=== PATIENT | male | born 1990 | race Caucasian/White ===

== ENCOUNTER 2022-10-18 18:22 | Emergency (ER) | payer MEDICARE, MEDICAID, SELFPAY ==
--- NOTE | ~2022-10-18 | XR_ITS ---
EXAMINATION: XR CHEST CLINICAL INFORMATION: 32-year-old with shortness of breath COMPARISON: 09/24/1999 TECHNIQUE: Frontal view of the chest was obtained. FINDINGS: There are ill-defined patchy airspace disease in the left upper lobe suggestive for pneumonia. The right lung is clear. Cardiomediastinal silhouette is normal. No evidence of pleural effusion. Osseous structures unremarkable. XR/XR chest 1V IMPRESSION: Patchy airspace disease in the left upper lobe, correlate clinically with pneumonia
[2022-10-18 18:31] VITALS: BP 142/68; BP 150/99; PULSE 111; PULSE 116; RESP 25; O2SAT 100; O2SAT 96; BMI 62.4
--- NOTE | 2022-10-18 18:33 | ECG_ITS ---
Test Reason : OVERDOSE Blood Pressure : / mmHG Vent. Rate : 107 BPM Atrial Rate : 107 BPM P-R Int : 156 ms QRS Dur : 112 ms QT Int : 370 ms P-R-T Axes : 050 014 009 degrees QTc Int : 493 ms Sinus tachycardia Possible Left atrial enlargement Left ventricular hypertrophy ( R in aVL , [place] product ) Inferior infarct , age undetermined Abnormal ECG When compared with ECG of 23-SEP-2017 13:29, Vent. rate has increased BY 62 BPM Inferior infarct is now Present Nonspecific T wave abnormality now evident in Inferior leads QT has lengthened Referred By: Yeimi Giron Electronically Signed By:CHERIE THRASHER
[2022-10-18 18:35] VITALS: PULSE 107; RESP 19; O2SAT 100
--- NOTE | 2022-10-18 19:08 | ED.OVERDOSE ---
HPI - Overdose General Chief Complaint: Overdose Stated Complaint: OD Time Seen by Provider: 10/18/22 18:32 History of Present Illness HPI Narrative: Is patient is a 32-year-old male found on the ground not breathing. Patient is of a larger size. He is over 200 kg in weight. Has a BMI of 62.5. Patient was placed on BiPAP by EMS. Given 16 mg of Narcan which woke him up. Came into the ED for further evaluation. Patient is now awake alert admits to using heroin. He stated he has not used heroin in a few years just tried it again today. Denies any chest pain any abdominal pain any nausea any vomiting. Related Data Previous Rx's Medication Instructions Recorded doxycycline hyclate 100 mg capsule 100 mg PO BID cough 7 days #14 caps 10/18/22 Allergies Allergy/AdvReac Type Severity Reaction Status Date / Time No Known Allergies Allergy Unverified 11/07/19 17:05 [No Known Allergies*] Review of Systems Review of Systems: Positive narcotic use Yes all other systems are reviewed and are negative [facility] Past Medical History Attestation statement: The following information was validated with the patient. Social History Social History Smoked in Last 30 Days: No Use of substances other than those prescribed or required for medical reasons: Yes Substance Use Type: Heroin and Other Substance Use Type Other:: Fetanyl Advance Directives: No Advance Directives Information Provided: Yes Physical Exam Vital Signs: Vital Signs: Last Vital Signs Pulse 111 H 10/18/22 18:31 Resp 19 10/18/22 18:35 BP 142/68 H 10/18/22 18:31 Pulse Ox 100 10/18/22 18:31 O2 Del Method BiPAP 10/18/22 18:31 BMI result Body Mass Index 62.4 Appearance: Alert. Patient getting BiPAP, their appearing Eyes: Pupils equal, round and reactive to light. ENT: Pharynx normal. Neck: Normal inspection. Neck supple. No lymph nodes noted. No crepitus CVS: Normal heart rate and rhythm. Pulses normal. Normal S1 and S2 Respiratory: No respiratory distress. Breath sounds normal. No Wheezing. No rales Abdomen: Soft and nontender. No rigidity. No distention. good BS x4 Skin: Skin warm and dry. Normal skin color. Normal skin turgor. Extremities: No lower extremity edema. Neurovascular intact to all extremities. No Lacerations. No Rash Neuro: Oriented X 3. No motor deficit. No sensory deficit. Moving all extermities. No slurred speech Medical Decision Making Medical Decision Making [facility] Narrative: Patient elected to rip his own BiPAP off. Started ambulating around his bed. Threatening to leave. His O2 sat was 100% on BiPAP. Approximately 95% Patient fair peering O2 sat maintained at 95% on room air. Ambulated patient in the emergency department O2 sat maintained at 94%. Patient's lungs appear clear. White count is 19. Patient's chest x-ray showed a likely left upper lobe infiltrate. Explained to patient the need to stop using recreational drugs. Patient states understanding. 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 Give patient advice on detox. Patient monitor in the emergency department for 2 hours, did not want to stay in the hospital is leaving. Will take antibiotics. A prescription for antibiotic was given. Differential Diagnosis Differential Diagnoses: The differential diagnosis associated with the presentation includes Heroin overdose, narcotic overdose Lab Data [facility] Lab Attestation statement: I reviewed the patient's lab results. 10/18/22 19:55 10/18/22 19:55 Labs: Lab Results 10/18/22 10/18/22 10/18/22 Range/Units 19:55 19:55 20:00 WBC 19.6 H (4.8-10.8) X10*3/uL RBC 4.45 L (4.60-5.80) X10*6/uL Hgb 10.5 L (14.0-18.0) g/dl Hct 33.9 L (42.0-52.0) % MCV 76.2 L (80.0-98.0) fL MCH 23.6 L (27.0-33.0) pg MCHC 31.0 (31.0-36.0) g/dl RDW 16.5 H (11.0-16.0) % Plt Count 362 (160-400) X10*3/uL MPV 9.4 (9.4-12.4) fL Immature Gran % (Auto) 1.4 H (0.0-0.4) % Neut % (Auto) 78.3 H (45-73) % Lymph % (Auto) 10.6 L (20-40) % Marshall % (Auto) 9.4 (2-11) % Eos % (Auto) 0.1 (0-4) % Baso % (Auto) 0.2 (0-2) % Lymph # (Auto) 2.1 (1.2-4.9) X10*3/uL Marshall # (Auto) 1.8 H (0.1-1.2) X10*3/uL Eos # (Auto) 0.0 (0.0-0.4) X10*3/uL Baso # (Auto) 0.0 (0.0-0.2) X10*3/uL Abs Immat Gran (auto) 0.28 H (0.00-0.03) X10*3/uL Absolute Neuts (auto) 15.3 H (2.0-8.3) x10*3/uL Absolute Nucleated RBC 0.000 (0.0-0.012) X10*3/uL Nucleated RBC % (auto) 0.0 (0.0-0.2) /100WBC Smear Tech's Comments VERIFIED VBG pH 7.37 (7.32-7.43) VBG pCO2 42 mmHg VBG pO2 71 mmHg VBG HCO3 25 (22-26) mmol/L VBG O2 Saturation 91.0 % VBG Base Excess -0.1 mmol/L Sodium 140 (135-145) mmol/L Potassium 3.5 (3.3-5.1) mmol/L Chloride 106 (96-108) mmol/L Carbon Dioxide 23 (22-29) mmol/L Anion Gap 15 (12-20) BUN 15 (9-16) mg/dL Creatinine 1.16 (0.5-1.4) mg/dL Estim Creat Clear Calc 165.0 Estimated GFR > 60 Random Glucose 149 H (60-115) mg/dL Calcium 9.2 (8.4-10.2) mg/dL Independent Interpretation I performed an independent interpretation of an: Plain X-Ray Interpretation: Positive left upper lobe infiltrate Radiology Impression Discussion of test interpretation with radiology: I have reviewed the radiologist's reading. External Record Review No old records available at [facility] Chronic Conditions History of obesity. Social Determinants Patient?s care significantly limited by Social Determinants of Health including: Alcoholism and drug addiction in family Discharge Plan Discharge Clinical Impression: Drug overdose, Pneumonia Patient Disposition: Left Against Medical Advice Instructions: Pneumonia (ED), Adult Overdose (ED) Additional Instructions: Please stop using heroin. Prescriptions: New doxycycline hyclate 100 mg capsule 100 mg PO BID 7 Days Qty: 14 0RF Referrals: Physician,Francheska Cohen [Primary Care Provider] - 10/20/22 Stand Alone Forms: Against Medical Advice
--- NOTE | 2022-10-18 19:15 | PC.NURSE ---
pt became alert and agitated, ripped off BIPAP, tore off heart monitor leads and was asking to leave AMA. Dr. Giron aware and spoke with pt, advising him to stay. pt agreed if his friend, Grecia could come in and knew if she had his belongings. pt currently getting washed up from being incontinent, EKG being obtained and labs to be drawn. report given to LELE Galvan.
[2022-10-18 20:02] LABS: Basophils Percent Auto 0.2 % (0-2); Eosinophils Percent Auto 0.1 % (0-4); Hematocrit 33.9 % (42.0-52.0); Hemoglobin 10.5 g/dl (14.0-18.0); Imm Gran Abs Auto 0.28 X10*3/uL (0.00-0.03); Imm Gran Pct Auto 1.4 % (0.0-0.4); Lymphocytes Absolute Auto 2.1 X10*3/uL (1.2-4.9); Lymphocytes Percent Auto 10.6 % (20-40); MANUAL DIFF FLAG SCAN; Mean Corpuscular Hemoglobin 23.6 pg (27.0-33.0); Mean Corpuscular Volume 76.2 fL (80.0-98.0); Mean Platelet Volume 9.4 fL (9.4-12.4); Monocytes Absolute Auto 1.8 X10*3/uL (0.1-1.2); Monocytes Percent Auto 9.4 % (2-11); Neutrophils Absolute Auto 15.3 x10*3/uL (2.0-8.3); Neutrophils Percent Auto 78.3 % (45-73); Platelet Count 362 X10*3/uL (160-400); Red Blood Count 4.45 X10*6/uL (4.60-5.80); Red Cell Distribution Width 16.5 % (11.0-16.0); SCAN SMEAR FLAG 1; White Blood Count 19.6 X10*3/uL (4.8-10.8)
[2022-10-18 20:03] LABS: Venous Blood Gas Refer to POC result
[2022-10-18 20:04] LABS: VBG Base Excess -0.1 mmol/L; VBG HCO3 25 mmol/L (22-26); VBG pCO2 42 mmHg; VBG pH 7.37 (7.32-7.43); VBG pO2 71 mmHg
[2022-10-18 20:15] LABS: Anion Gap 15 (12-20); Blood Urea Nitrogen 15 mg/dL (9-16); Calcium 9.2 mg/dL (8.4-10.2); Carbon Dioxide 23 mmol/L (22-29); Chloride 106 mmol/L (96-108); Estimated Glomerular Filt Rate > 60; Glucose Random 149 mg/dL (60-115); Potassium 3.5 mmol/L (3.3-5.1); Sodium 140 mmol/L (135-145)
--- NOTE | 2022-10-18 20:34 | MHC.EDTECH ---
Patient care in assisting patient to take off soiled clothing and cleaned patient with bathing cloths. Changed pads on the bed. Put clean rupal on patient.
--- NOTE | 2022-10-18 20:39 | MHC.EDTECH ---
Brought patient a pitcher of ice water and towel.
--- NOTE | 2022-10-18 20:58 | MHC.RECOVSUP ---
? Reason for consult:OPI o? Current location:[facility]? o? Identified substance use concern:? -? Overdose -? Support ? Intervention: o? Community resources provided ? Plan:N/a ? 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 [facility] provided this pt with recovery resources and contact information to assist this pt with obtaining a conditioning coach. Provider informed.
[2022-10-18 21:06] LABS: SLIDE REVIEW VERIFIED
[2022-10-18] MEDS: Doxycycline Monohydrate 100 MG CAPSULE PO (21:33)
[2022-10-18] MEDS: Naloxone HCl Nasal TAKE HOME 4 MG SPRAY 8 MG NOSTRILALT (21:35)
== END 2022-10-19 01:07 | disposition left against medical advice (07) ==
PROVIDERS: Emergency Provider Emergency Medicine Emergency Medical Services
DX: T40.1X1A Poisoning by heroin, accidental (unintentional), initial encounter (principal); J18.9 Pneumonia, unspecified organism; R06.02 Shortness of breath; Y92.9 Unspecified place or not applicable; Z79.899 Other long term (current) drug therapy
CPT/HCPCS: 36415; 71045; 80048; 82803; 85025; 93005; 99284